=== PATIENT | male | born 1985 | race Caucasian/White ===

== ENCOUNTER 2023-03-06 13:37 | Emergency (ER) | payer MEDICAID ==
[~2023-03-06] VITALS: Ht 180.3 cm; Wt 77.8 kg
[2023-03-06 13:53] VITALS: BP 120/71
[2023-03-06] MEDS ORDERED: CefTRIAXone 250MG IM Kit w/LIDOcaine IM STA (14:39)
[2023-03-06] MEDS ORDERED: PENICILLIN G BENZATHINE 2,400,000 UNIT/4 ML SYRINGE IM STA (14:39)
[2023-03-06] MEDS ORDERED: azithromycin 250mg tablet PO ONE (14:50)
--- NOTE | 2023-03-06 18:07 | NUR ---
PATIENT WAS DC AFTER MEDICATED WITH ANTIBIOTICS. LAB STATES THERE IS NO URINE SPECIMEN. DR. ULCAS WOULD LIKE PATIENT TO RETURN TO ER TO PROVIDE URINE SPECIMEN. MESSAGE LEFT ON PATIENT'S PHONE TO CALL BACK OR RETURN TO ER TO PROVIDE URINE SPECIMEN.
== END 2023-03-06 17:08 | disposition home or self-care (01) ==
LOC: ER 13:37
DX: A53.9 Syphilis, unspecified (principal)
CPT/HCPCS: 36415; 86592; 96372; 99284; J0561; J0696

== ENCOUNTER 2025-05-10 03:40 | Emergency (ER) | payer MEDICAID ==
[~2025-05-10] VITALS: Ht 180.3 cm; Wt 64.7 kg
--- NOTE | 2025-05-10 04:16 | Physician Documentation ---
History of Present Illness ~ Chief Complaint: Penile Pain Stated Complaint: PENIAL PAIN Time Seen by MD: 04:09 OK to notify your PCP?: Yes Source: patient, RN/MD, RN notes reviewed, old records Mode of Arrival: POV Exam Limitations: no limitations HPI 39 year old male seen in bed 08 with history of undetectable HIV presents to the emergency department for complaints of penile pain. Patient states that he has had an erection for 8.5 hours. He states that he has had an issue with long lasting erections in the past. Patient denies taking any medications that cause erections. Medication Reconciliation Allergies: Coded Allergies: No Known Allergies (Unverified , 03/06/23) Past Medical History Past Medical History: HIV Past Surgical History: no surgical history Alcohol Use: None Lives In: Home Review of Systems All Other Systems at this time: Reviewed and Negative ROS As stated above in the HPI, otherwise all systems are reviewed and negative. Physical Exam Vital Signs: RN Vital Signs have been reviewed: Yes, Temperature: 97.8, Heart Rate: 94, Respiratory Rate: 15, BP: 138/92, Pulse Oximetry: 98, Weight: 64.700 Pulse Oximetry Reflects: adequate oxygenation Physical Exam General: The patient is well developed, well nourished, nontoxic appearing and is in no acute distress. Skin: [place], warm and dry with no rashes. HEENT: Head was normocephalic and atraumatic. Eyes - pupils equal, round, reactive to light and accommodation. Extraocular movements were intact. Conjunctivae were nonicteric. Ears - bilateral tympanic membranes were normal. The mouth and oropharynx were clear with moist mucous membranes. There were no pharyngeal exudates or erythema. Neck: Supple and nontender. There was no jugular venous distention, lymphadenopathy, thyromegaly or masses. Chest: Clear to auscultation bilaterally without wheezes, rales or rhonchi. No accessory muscle use. No dullness to percussion. Heart: Rate regular and rhythmic. S1, S2. No murmurs. Palpation of the chest wall was normal. No rubs or thrills. Abdomen: Soft, nontender and nondistended. Positive bowel sounds. No guarding or rebound. No hepatosplenomegaly or palpable masses. Extremities: No cyanosis, clubbing or edema. The patient moves all extremities. Pulses were equal and symmetric. Neurologic: Cranial nerves II-XII were intact. Sensation was intact to light touch throughout. Motor strength was 5/5 in all four extremities. Deep tendon reflexes were intact in both upper and lower extremities. Psychologic: The patient was oriented to person, place and time. The patient demonstrated appropriate judgement and insight. : Patient has an erection. Procedures Additional Procedures Additional Procedures: Other Additional Procedure Note Patient was injected with 100mg of phentylephrine twice, he was injected into his penis bilaterally. No blood was withdrawn from the site. Shaft was also injected with .5 lidocaine in sterile fashion with pressure applied at the injection site. Patient began to soften. Progress Results/Orders Reviewed/noted all lab results: Yes Results/Orders Orders - EM BROWN MD, Md To Page (05/10/25 06:43) Completed Orders - EM BROWN MD Cbc/Diff (05/10/25 04:09) Morphine 2mg/Ml Inj. (Morphine Inj.) (05/10/25 04:10) Normal Saline 1000ml (0.9% Sodium Chlori (05/10/25 04:10) BMP (05/10/25 04:09) Pseudoephedrine Tablet (Sudafed Tablet) (05/10/25 04:15) Hydromorphone 1 Mg/Ml/Pf (Dilaudid Inj.) (05/10/25 04:20) 0.9% Sodium Chloride 10ml Vial (0.9% Sod (05/10/25 05:00) Diazepam Tablet (Valium Tablet) (05/10/25 05:30) Phenylephrine 10mg/1 Ml Inj (Vazculep (P (05/10/25 05:55) Vital Signs 05/10/25 05/10/25 05/10/25 05/10/25 03:47 04:33 04:42 06:15 Temp 97.8 Pulse 94 Resp 15 16 16 16 B/P (MAP) 138/92 Pulse Ox 98 05/10/25 05/10/25 05/10/25 05/10/25 06:48 07:30 08:30 10:03 Temp 98.2 Pulse 76 72 74 Resp 20 16 17 16 B/P (MAP) 168/88 (114) 122/79 (93) 125/73 (90) 123/87 Pulse Ox 99 99 98 98 O2 Flow Rate 0 0 Laboratory Tests Test 05/10/25 04:36 White Blood Count 7.1 Red Blood Count 4.96 Hemoglobin 13.7 L Hematocrit 40.9 L Mean Corpuscular Volume 82.4 Mean Corpuscular Hemoglobin 27.6 Mean Corpuscular Hemoglobin Concent 33.5 Red Cell Distribution Width 16.1 H Platelet Count 256 Mean Platelet Volume 7.1 L Neutrophils (%) (Auto) 57.5 Lymphocytes (%) (Auto) 32.6 Monocytes (%) (Auto) 7.8 Eosinophils (%) (Auto) 1.8 Basophils (%) (Auto) 0.3 Neutrophils # (Auto) 4.1 Lymphocytes # (Auto) 2.3 Monocytes # (Auto) 0.6 Eosinophils # (Auto) 0.1 Basophils # (Auto) 0.0 CBC Comment Sodium Level 139 Potassium Level 4.0 Chloride Level 105 Carbon Dioxide Level 30.4 Anion Gap 4 L Blood Urea Nitrogen 23 H Creatinine 1.02 Estimated GFR/1.73 m2 81 BUN/Creatinine Ratio 22.5 H Glucose Level 126 H Calcium Level 9.0 Albumin 3.5 Chemistry Comments Re-Evaluation Re-Evaluation : Re-Evaluation: Improved Progress This patient is having a significant medical emergency. Patient received morphine as well as saline. Also Sudafed was ordered at 4:14 a.m.. Phenylephrine was then ordered. Multiple attempts were made to contact pharmacy to bring in the medications. Patient was having severe penile pain agitated during the interim period of time until meds were given. Patient received additional medications of Valium. Finally the phenylephrine arrived to rounds of injections were injected into the corpus cavernosum. Second set started to have the patient become more flaccid after the 1st set he states his pain dramat ically improved but did not visually see a dramatic improvement. Patient did not completely resolve although he states that is his baseline suggesting he has chronic penile injury since he has never followed up in his had multiple episodes. Later I contacted Urology who was coming in to help with the management of the patient as well as to help with a penile block however patient started to have resolution of his symptoms neurology was canceled. Patient will follow up with Dr. Jasmine on outpatient basis. Patient has HIV he has transient comes and goes to different cities. States he will be in [place] for awhile. He was encouraged to follow up with the urologist. Patient's laboratory work was obtained WBCs 7.1. No left shift slight anemia with a hemo globin of 13 hematocrit 40.9. No left shift MCV 82. Chemistry was within normal limits. Glucose slightly elevated at 126 I did not have an opportunity to obtain a blood gas analysis on blood from the penis. Patient did appear viable he was receiving some blood supply it was never cyanotic. Continuous awake overnight monitor interpretation shows normal sinus rhythm heart rate 90s, no ectopy, normal, my interpretation. Pulse oximetry monitor interpretation shows normal oxygenation at 98% room air, normal, my interpretation. Medical Decision Making Additional info obtained from: old records Genital Diff Dx:Considerations: Include: Balanoposthitis, Cellulitis, Entrapment injury, Facture penis, Priapism, UTI, Other Departure Disposition: HOME / SELF CARE / HOMELESS Impression: Primary Impression: Priapism Condition: Stable Referrals: NO PRIMARY CARE PROVIDER (PCP) Education Educated: Patient Educated regarding: diagnosis, other Critical Care Note Total Time (mins): 45 Critical Care Note The very real possibility of a deterioration of this patient's condition required the highest level of my preparedness for sudden, emergent intervention. I provided critical care services, which included medication orders, frequent reevaluations of the patient's condition and response to treatment, ordering and reviewing test results, and discussing the case with various consultants. Excludes time spent performing separately billable procedures. The critical care time associated with the care of the patient was 45 minutes. Signature Scribe Signature: Scribed for Em Brown MD by Matthew De La Cruz . 05/10/25 04:17 Attestation: The note accurately reflects work and decisions made by me.Em Brown MD 05/10/25 04:16 EM BROWN MD May 10, 2025 04:16 MATTHEW SARAVIA May 10, 2025 04:17
[2025-05-10] MEDS: normal saline 1000ML IV soln IVB ONE (04:35)
[2025-05-10 04:52] LABS: MEAN PLATELET VOLUME 7.1 FL (7.4-10.4); RED CELL DISTRIBUTION WIDTH 16.1 % (11.5-14.5)
[2025-05-10] MEDS ORDERED: PHENYLEPHRINE IC ONE (04:55)
[2025-05-10] MEDS ORDERED: NORMAL SALINE IC ONE (04:55)
[2025-05-10 05:00] LABS: CREATININE 1.02 MG/DL (0.60-1.10); TOTAL CARBON DIOXIDE 30.4 MMOL/L (24-32); eCRCL 88 ML/MIN; eGFR 81 ML/MIN
[2025-05-10] MEDS: 0.9 % SODIUM CHLORIDE 10 ML VIAL IJ ONE (05:00)
[2025-05-10] MEDS ORDERED: PHENYLephrine 10mg/ml 5ml injection IV ONE ×2 (05:00→05:06)
[2025-05-10] MEDS: pseudoephedrine 30mg tablet PO ONE (06:38)
[2025-05-10] MEDS: PHENYLEPHRINE IC ONE (06:40)
[2025-05-10] MEDS: NORMAL SALINE IC ONE (06:40)
[2025-05-10 08:30] VITALS: PULSE 74
[2025-05-10 10:03] VITALS: BP 123/87; RESP 16; TEMP 98.2; O2SAT 98
== END 2025-05-10 10:09 | disposition home or self-care (01) ==
LOC: ER 03:41
DX: N48.30 Priapism, unspecified (principal)
CPT/HCPCS: 36415; 54235; 80048; 85025; 96361; 96365; 96375; 99291; J1171; J2371; J3490; J7030; 99285